=== PATIENT | female | born 2000 | race Caucasian/White ===

== ENCOUNTER 2023-08-13 13:38 | Observation (INO) | payer OTHER ==
[2023-08-13 14:25] LABS: BASOPHILS # (AUTO) 0.1 10^3/uL (0.0-0.1); BASOPHILS % (AUTO) 0.9 %; EOSINOPHILS % (AUTO) 0.3 %; HCT - HEMATOCRIT 22.3 % (37.0-47.0); LYMPHOCYTES # (AUTO) 1.5 10^3/uL (1.5-3.5); LYMPHOCYTES % (AUTO) 22.6 %; MEAN CORPUSCULAR HEMOGLOBIN 20.7 pg (27.0-31.0); MEAN CORPUSCULAR HGB CONC 28.7 g/dL (32.0-36.0); MEAN CORPUSCULAR VOLUME 72.2 fL (81.0-99.0); MEAN PLATELET VOLUME 10.4 fL (7.9-10.8); MONOCYTES # (AUTO) 0.6 10^3/uL (0.0-1.0); MONOCYTES % (AUTO) 8.6 %; NEUTROPHILS # (AUTO) 4.6 10^3/uL (1.5-6.6); NEUTROPHILS % (AUTO) 67.2 %; PLT - PLATELET COUNT 387 10^3/uL (130-450); RED BLOOD COUNT 3.09 10^6/uL (4.20-5.40); RED CELL DISTRIBUTION WIDTH 17.2 % (12.0-15.0); WHITE BLOOD COUNT 6.8 x10^3/uL (4.8-10.8)
[2023-08-13 14:28] LABS: HGB - HEMOGLOBIN 6.4 g/dL (12.0-16.0)
[2023-08-13 14:29] LABS: SLIDE REVIEW? Indicated
[2023-08-13 14:36] LABS: ALBUMIN 4.4 g/dL (3.2-5.5); ALBUMIN/GLOBULIN RATIO 1.8 (1.0-2.2); BILIRUBIN,TOTAL 0.2 mg/dL (0.2-1.0); CREATININE 0.7 mg/dL (0.6-1.3); POTASSIUM 3.7 mmol/L (3.5-4.5); TOTAL PROTEIN 6.9 g/dL (6.4-8.9)
[2023-08-13 14:50] LABS: PLATELET ESTIMATE, MANUAL NORMAL (130-450,000) (NORMAL); PLATELET MORPHOLOGY NORMAL APPEARANCE (NORMAL)
[2023-08-13 14:51] LABS: WBC MORPHOLOGY (MULTIPLE) NORMAL APPEARANCE (NORMAL)
[2023-08-13 14:57] LABS: HCG,QUALITATIVE BLOOD NEGATIVE
--- NOTE | 2023-08-13 15:29 | ED Physician Documentation ---
History of Present Illness - Stated complaint Stated Complaint: SENT BY PCP TRANSFUSION - Chief complaint Chief Complaint: General - Additonal information Additional information: 23-year-old female presents to the emergency department for evaluation of anemia and prolonged vaginal bleeding. She was seen at [facility] this morning for shortness of breath and fatigue. They found that she had a hemoglobin of 6.1 and she was advised ER evaluation. 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 Utilizing anywhere from 2- 6 pads a day. Because she was deployed they did not have the ability to further evaluate her vaginal bleeding and she just returned from deployment. She endorses fatigue and some shortness of air but no exertional chest pain. No syncope. No history of prolonged bleeding in the past. Denies melena. Does not take NSAID medication. Is not on any OCP. 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 : None HEENT: None Psych: None Musculoskeletal: None Derm: None - Past Surgical History Past Surgical History: No - Present Medications Home Medications: Ambulatory Orders Medication Instructions Recorded Confirmed No Known Home Medications 08/13/23 08/13/23 - Allergies Allergies/Adverse Reactions: Allergies Allergy/AdvReac Type Severity Reaction Status Date / Time No Known Drug Allergies Allergy Verified 08/13/23 14:00 - Social History Does the pt smoke?: No Smoking Status: Never smoker Does the pt drink ETOH?: No Does the pt have substance abuse?: No - Immunizations Immunizations are current?: Yes - POLST Patient has POLST: No PD ED PE NORMAL - General General: Alert and oriented X 3, No acute distress - Neck Neck: Supple, no meningeal sign - Cardiac Cardiac: RRR, No murmur - Respiratory Respiratory: No respiratory distress, Clear bilaterally - Abdomen Abdomen: Normal bowel sounds, Soft - Derm Derm: Normal color, Warm and dry - Extremities Extremities: No deformity - Neuro Neuro: Alert and oriented X 3, clipper machine 2-12 intact Eye Opening: Spontaneous Motor: Obeys Commands Verbal: Oriented GCS Score: 15 Results - Vitals Vitals: Vital Signs - 24 hr 08/13/23 14:00 Temperature 36.5 C Heart Rate 98 Respiratory 16 Rate Blood Pressure 138/76 H O2 Saturation 100 Oxygen O2 Source Room air - Labs Labs: Laboratory Tests 08/13/23 08/13/23 08/13/23 14:16 14:16 14:16 WBC 6.8 RBC 3.09 L Hgb 6.4 L* Hct 22.3 L MCV 72.2 L MCH 20.7 L MCHC 28.7 L RDW 17.2 H Plt Count 387 MPV 10.4 Neut # (Auto) 4.6 Lymph # (Auto) 1.5 Screven # (Auto) 0.6 Eos # (Auto) 0.0 Baso # (Auto) 0.1 Absolute Nucleated RBC 0.00 Nucleated RBC % 0.0 Manual Slide Review Indicated WBC Morphology NORMAL APPEARANCE Platelet Estimate NORMAL (130-450,000) Platelet Morphology NORMAL APPEARANCE RBC Morph Micro Appear 2+ MICROCYTOSIS Sodium 137 Potassium 3.7 Chloride 106 Carbon Dioxide 27 Anion Gap 4.0 L BUN 13 Creatinine 0.7 Estimated GFR (MDRD) 104 Glucose 99 Calcium 9.0 Total Bilirubin 0.2 AST 13 ALT 9 L Alkaline Phosphatase 74 Total Protein 6.9 Albumin 4.4 Globulin 2.5 Albumin/Globulin Ratio 1.8 Lipase 34 Serum HCG, Qual Blood Type O POSITIVE Blood Type Recheck Antibody Screen NEGATIVE Crossmatch IS Only See Detail 08/13/23 08/13/23 14:16 14:55 WBC RBC Hgb Hct MCV MCH MCHC RDW Plt Count MPV Neut # (Auto) Lymph # (Auto) Screven # (Auto) Eos # (Auto) Baso # (Auto) Absolute Nucleated RBC Nucleated RBC % Manual Slide Review WBC Morphology Platelet Estimate Platelet Morphology RBC Morph Micro Appear Sodium Potassium Chloride Carbon Dioxide Anion Gap BUN Creatinine Estimated GFR (MDRD) Glucose Calcium Total Bilirubin AST ALT Alkaline Phosphatase Total Protein Albumin Globulin Albumin/Globulin Ratio Lipase Serum HCG, Qual NEGATIVE Blood Type Blood Type Recheck O POSITIVE Antibody Screen Crossmatch IS Only - Rads (name of study) pelvic US Relevant Findings:: Final report received (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 Unclear etiology recommend further evaluation with sampling or MRI.) PD Medical Decision Making - ED course Complexity details: reviewed results, re-evaluated patient, d/w patient ED course: 23-year-old female referred to the emergency department for evaluation of anemia from the [facility]. Patient states she began having vaginal bleeding in March while on deployment. She is utilizing anywhere from 2-6 pads a day. She reports that she feels somewhat short of breath and fatigue but is not having any exertional chest pain or syncope. Presentation the ED she looks remarkably well with normal vital signs. Initial hemoglobin was 6.4. [facility] had a hemoglobin of 6.1. Received 20 minutes of [id number] time was spent with the patient, almost all in explanation and discussion is or fractures or sacral fracture the rest of her electrolytes were without acute worrisome abnormality. However given the anemia I have ordered 1 unit PRBC infusion. I also ordered a pelvic ultrasound for further evaluation of the source of bleeding. 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 Recommendation is for an MRI. Subsequently I spoke on the phone with plastics fabrication supervisor Dr. Campo on-call today who recommends that we continue with the MRI as well as the blood transfusion given the timing as well as the length required for these processes patient will be admitted under an observation status. Departure - Departure Disposition: ED Place in Observation Clinical Impression: Dysfunctional uterine bleeding, Anemia Forms: PCP List
--- NOTE | 2023-08-13 16:47 | Ultrasound Report ---
PROCEDURE: Pelvic w/Transvag+Doppler Comp INDICATIONS: vaginal bleeding since March TECHNIQUE: Real-time scanning was performed of the pelvic organs, with image documentation. Additional endovagi nal scanning was necessary due to incomplete visualization of the adnexal and endometrial structures by transabdominal scanning. Doppler interrogation was performed of the ovaries bilaterally. COMPARISON: None. FINDINGS: Uterus: Uterus is anteverted and normal in size at 6.2 x 3.8 x 5.1 cm. The myometrium is heterogene ous. There is an arcuate/septate endometrium. There is thickening and hypervascularity throughout the entire endometrium from the cervix to the fundus. Ovaries: The right ovary measures 3.0 x 2.0 x 2.4 cm, with a calculated ovarian volume of 7.3 cc. T he left ovary measures 2.6 x 1.8 x 1.6 cm, with a calculated ovarian volume of 3.8 cc. Appropriate b lood flow to the ovaries with Doppler interrogation. Less than 12 follicles can be seen in each ova ry. No adnexal masses are seen. No cystic lesions measuring greater than 3 cm. Other: No pathologic free abdominal or pelvic fluid. IMPRESSION: 1.There is an arcuate/septate morphology to the endometrium. There is thickening and hypervascularity throughout the entire endometrium from the cervix to the fundus. This is of unclear etiology. Recomm end further evaluation with endometrial sampling or MRI. 2.The ovaries are normal in appearance. Reviewed by: Ramírez Walter MD on 08/13/2023 4:45 PM PST Approved by: Ramírez Walter MD on 08/13/2023 4:45 PM PST Station ID: [id number]
[2023-08-13] MEDS ORDERED: SODIUM CHLORIDE FLUSH 0.9% 10 ML SYRINGE IVP PRN (17:21)
[2023-08-13] MEDS ORDERED: GADOTERATE MEGLUMINE 10 MMOL/20 ML VIAL ONE (18:06)
[2023-08-13] MEDS ORDERED: GADOTERATE MEGLUMINE 10 MMOL/20 ML VIAL IVP ONE (18:27)
[2023-08-13] MEDS ORDERED: SODIUM CHLORIDE 0.9% 1,000 ML IV SCH (19:00)
--- NOTE | 2023-08-13 20:40 | MRI Report ---
PROCEDURE: PELVIS W/WO INDICATIONS: AUB; vascular endometrial anomaly on US CONTRAST: CLARISCAN 14.6ML TECHNIQUE: Coronal ultra fast SE, sagittal breath-hold T2 FSE; axial T1 FSE with and without fat saturation thro ugh the pelvis. Optional long- and short-axis uterine nonbreath-hold T2 FSE through the uterus. Sag ittal or axial dynamic ultra fast GE during administration of contrast. Post-contrast axial or coron al ultra fast GE / 2-D spoiled GE with fat saturation from the iliac crests to the symphysis. Option al diffusion weighted imaging and ADC may be performed. COMPARISON: Same day vascular ultrasound FINDINGS: Image quality: Excellent. Uterus: The uterus is anteverted and anteflexed. The lateral margin of the uterus is smooth, without indentation. Within the endometrial cavity, there is a fibrous appearing, incomplete septation extend ing from the fundal segment (series 3, image 20), with associated soft tissue that extends through th e endocervix and into the vagina (series 3, image 17). This soft tissue does not demonstrate restrict ed diffusion, and doesn't demonstrate enhancement. The septation is incomplete, with a rim of normal endometrial tissue surrounding it within the mid uterine segment (series 2, image 13). Adnexa: Both ovaries are normal in size, without suspicious cystic or solid lesions. Urinary system: Bladder wall is normal in thickness. Distal ureters are non distended. Urethra lissy ears normal in morphology. Nodes and vessels: No pelvic or inguinal adenopathy by size criteria. Iliac vessels are normal in s ize. Bowel and peritoneum: No pathologic free pelvic fluid. Inferior colon and small bowel loops are nor mal in caliber. Soft tissues: No inguinal hernias. No findings of pelvic floor incompetence in the absence of provo cation. Bones: Marrow demonstrates normal overall signal. IMPRESSION: There is a soft tissue mass extending through the endocervix and into the vagina, originating from th e fundus of the uterus. There appears to be a incomplete septation of the breast tissue at this regio n. If this soft tissue does enhance, but does not restrict. Findings may indicate a prolapsed submucosal fibroid, less likely septate uterus. Recommend direct vi sualization and sampling of this soft tissue mass located within the vagina. Reviewed by: Rinku Napier on 08/13/2023 8:39 PM PST Approved by: Rinku Napier on 08/13/2023 8:39 PM [facility] Station ID: [id number]
[2023-08-13] MEDS ORDERED: diphenhydrAMINE 25 MG CAPSULE PO SCH (22:00)
[2023-08-13] MEDS ORDERED: ACETAMINOPHEN 325 MG TABLET PO SCH (22:00)
[2023-08-13 23:35] LABS: CHLAMYDIA TRACHOMATIS DNA NEGATIVE (NEGATIVE); NEISSERIA GONORRHOEAE DNA NEGATIVE (NEGATIVE); TRICHOMONAS VAGINALIS DNA NEGATIVE (NEGATIVE)
[2023-08-14] MEDS ORDERED: SODIUM CHLORIDE FLUSH 0.9% 10 ML SYRINGE IVP SCH (01:00)
[2023-08-14] MEDS ORDERED: SODIUM CHLORIDE 0.9% 1,000 ML IV SCH (01:00)
[2023-08-14 07:58] LABS: HCT - HEMATOCRIT 30.1 % (37.0-47.0); HGB - HEMOGLOBIN 9.2 g/dL (12.0-16.0)
--- NOTE | 2023-08-14 09:43 | ANESTHESIA ---
Pre-Anesthesia VS, & Labs - Diagnosis anemia, abnormal bleeding - Procedure hysteroscopy, D&C Vital Signs: Temp Pulse Resp BP Pulse Ox O2 Flow Rate 36.7 C 75 18 114/72 100 08/14/23 07:44 08/14/23 07:44 08/14/23 07:44 08/14/23 07:44 08/14/23 07:44 Height: 5 ft 3 in Weight (kg): 73.1 kg Body Mass Index: 28.5 BMI Classification: Overweight - NPO >8 hours - Is Patient ?: No - Lab Results Current Lab Results: Laboratory Tests 08/14/23 07:44: Hgb 9.2 L, Hct 30.1 L 08/13/23 14:55: Blood Type Recheck O POSITIVE 08/13/23 14:16: Serum HCG, Qual NEGATIVE 08/13/23 14:16: Blood Type O POSITIVE, Antibody Screen NEGATIVE, Crossmatch IS Only See Detail 08/13/23 14:16: Sodium 137, Potassium 3.7, Chloride 106, Carbon Dioxide 27, Anion Gap 4.0 L, BUN 13, Creatinine 0.7, Estimated GFR (MDRD) 104, Glucose 99, Calcium 9.0, Total Bilirubin 0.2, AST 13, ALT 9 L, Alkaline Phosphatase 74, Total Protein 6.9, Albumin 4.4, Globulin 2.5, Albumin/Globulin Ratio 1.8, Lipase 34 08/13/23 14:16: WBC 6.8, RBC 3.09 L, Hgb 6.4 L*, Hct 22.3 L, MCV 72.2 L, MCH 20.7 L, MCHC 28.7 L, RDW 17.2 H, Plt Count 387, MPV 10.4, Neut # (Auto) 4.6, Lymph # (Auto) 1.5, Baker # (Auto) 0.6, Eos # (Auto) 0.0, Baso # (Auto) 0.1, Absolute Nucleated RBC 0.00, Nucleated RBC % 0.0, Manual Slide Review Indicated, WBC Morphology NORMAL APPEARANCE, Platelet Estimate NORMAL (130-450,000), Platelet Morphology NORMAL APPEARANCE, RBC Morph Micro Appear 2+ MICROCYTOSIS Fish Bones: 08/14/23 07:44 08/13/23 14:16 Home Medications and Allergies Home Medications: Ambulatory Orders No Known Home Medications 08/13/23 Active Medications Acetaminophen (Acetaminophen 325 Mg Tablet) 650 mg PO .ONCE PIYUSH Last Admin: 08/13/23 22:44 Dose: 650 mg Diphenhydramine HCl (Diphenhydramine 25 Mg Capsule) 25 mg PO .ONCE PIYUSH Last Admin: 08/13/23 22:44 Dose: 25 mg Sodium Chloride (Normal Saline 0.9%) 1,000 mls @ 125 mls/hr IV .Q8H [facility] Last Admin: 08/14/23 02:00 Dose: 125 mls/hr Sodium Chloride (Sodium Chloride Flush 0.9% 10 Ml Syringe) 10 ml IVP PRN PRN PRN Reason: NEEDED PER PROVIDER ORDERS Sodium Chloride (Sodium Chloride Flush 0.9% 10 Ml Syringe) 10 ml IVP 0100,0900,1700 [facility] Last Admin: 08/13/23 19:45 Dose: 10 ml No Known Home Medications 08/13/23 Allergies/Adverse Reactions: Allergies Allergy/AdvReac Type Severity Reaction Status Date / Time No Known Drug Allergies Allergy Verified 08/13/23 14:00 Anes History & Medical History - Anesthetic History Anesthesia Complications: reports: No previous complications (pt has never had GA) Family history of Anesthesia Complications: Denies Family history of Malignant Hyperthermia: Denies - Medical History Cardiovascular: reports: None Pulmonary: reports: None Gastrointestinal: reports: None Urinary: reports: None Neuro: reports: None Musculoskeletal: reports: None Endocrine/Autoimmune: reports: None Blood Disorders: reports: None Skin: reports: None Smoking Status: Never smoker Other Past Medical History: Asthma as a child, none as an adult Exam General: Alert, Oriented x3, Cooperative Dental: WNL Mouth Openin Fingerbreadth Neck Mobility: Normal Mallampati classification: I Respiratory: Lungs clear Cardiovascular: Regular rate Plan Anesthesia Type: General Consent for Procedure(s) Verified and Reviewed: Yes Code Status: Attempt Resuscitation ASA classification: 1-Healthy patient Is this case an emergency?: No
[2023-08-14] MEDS ORDERED: ONDANSETRON 4 MG/2 ML VIAL IVP PRN (09:44)
[2023-08-14] MEDS ORDERED: NALOXONE 0.4 MG/ML VIAL IVP PRN (09:44)
[2023-08-14] MEDS ORDERED: HYDROmorphone 0.5 MG/0.5 ML SYRINGE IVP PRN (09:44)
[2023-08-14] MEDS ORDERED: ATROPINE ABBOJECT 1 MG/10 ML SYRINGE IVP PRN (09:44)
[2023-08-14] MEDS ORDERED: METOCLOPRAMIDE 10 MG/2 ML VIAL IVP PRN (09:44)
[2023-08-14] MEDS ORDERED: ePHEDrine 50 MG/ML VIAL IVP PRN (09:44)
[2023-08-14] MEDS ORDERED: MORPHINE 2 MG/ML CARPUJECT IVP PRN (09:44)
[2023-08-14] MEDS ORDERED: fentaNYL 100 MCG/2 ML VIAL IVP PRN (09:44)
[2023-08-14] MEDS ORDERED: LACTATED RINGERS 1,000 ML IV SCH (10:00)
[2023-08-14] MEDS ORDERED: SILVER NITRATE APPLICATOR TOP ONE (10:06)
[2023-08-14] MEDS ORDERED: MIDAZOLAM 2 MG/2 ML VIAL ONE (10:22)
[2023-08-14] MEDS ORDERED: fentaNYL 100 MCG/2 ML VIAL ONE (10:22)
[2023-08-14] MEDS ORDERED: PROPOFOL 200 MG/20 ML VIAL IVP ONE (10:24)
[2023-08-14] MEDS ORDERED: ACETAMINOPHEN 1,000 MG/100 ML 1,000 MG/100 ML BAG IV ONE (10:24)
[2023-08-14] MEDS ORDERED: ONDANSETRON 4 MG/2 ML VIAL ONE (10:24)
[2023-08-14] MEDS ORDERED: DEXAMETHASONE 4 MG/ML VIAL ONE (10:24)
[2023-08-14] MEDS ORDERED: KETOROLAC 30 MG/ML VIAL ONE (10:24)
[2023-08-14] MEDS ORDERED: LIDOCAINE-MPF 2% 5 ML VIAL ONE (10:24)
--- NOTE | 2023-08-14 10:32 | HISTORY & PHYSICAL EXAMINATION ---
HPI - Admitted From Admitted from: ED - History Obtained From History obtained from: Patient Exam limitations: No limitations - History of Present Illness Pain/Problem Location Description: pt presented with h/o bleeding since march - was deployed with the [employer] an HPI Comment/Other: pt presented to ED - referred in by [place] PCP for having HgB 6.1. Pt was deployed in [facility] x 6 months and bled the entire time. Sometimes red, sometimes brown and tacky, sometimes liquid and smelly. U/S showed abnormal uterine finding, MRI done - also showed abnormal finding. Discussed septation - on exam though is c/w long polyp vs prolapsing fibroid. received imaging, exam, labs, and 2 u PRBC overnight in preparation for the OR tomorrow no remarkable pain had abnormal bleeding a year ago - for 3w or a month, and then her periods returned regular until March of this year. PMH: denies PSH: denies POB: G0 PGYN: no h/o abnormal pap no h/o STDs no h/o problems with ovaries or uterus pt with regular monthly periods Meds: none All: NKDA Soc: neg x3, lives with [employer] housing, her is in [facility] just now. Fam: unremarkable, her mom had heavy bleeding for a few years, then surgery, and she is fine now. no cancer in her family. VSS NAD Conjunctiva pale, pale sclera +S1, S2, CTAB, no increased work of breathing Abd soft, NT, ND Pelvic: prolapsing large polyp, cervix surrounds polyp, no attachments of polyp to vagina, and polyp is firm. 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 : positive: None HEENT: positive: None Psych: positive: None Musculoskeletal: positive: None Derm: positive: None MRSA Hx?: No Other Past Medical History: Asthma as a child, none as an adult Social & Family Hx - Social History Does the pt smoke?: No Smoking Status: Never smoker Does the pt drink ETOH?: No Does the pt have substance abuse?: No - POLST Patient has POLST: No Meds/Allgy - Home Medications Home Medications: Ambulatory Orders Medication Instructions Recorded Confirmed No Known Home Medications 08/13/23 08/13/23 - Allergies Allergies/Adverse Reactions: Allergies Allergy/AdvReac Type Severity Reaction Status Date / Time No Known Drug Allergies Allergy Verified 08/13/23 14:00 Exam - Vital Signs Vital Signs: Vital Signs x48h Temp Pulse Resp BP Pulse Ox 08/14/23 07:44 98.1 F 75 18 114/72 100 Results - Lab Results Fish Bones: 08/14/23 07:44 08/13/23 14:16 Other Lab Results: Lab Results x24hrs 08/14/23 08/13/23 08/13/23 Range/Units 07:44 21:20 14:55 WBC (4.8-10.8) x10^3/uL RBC (4.20-5.40) 10^6/uL Hgb 9.2 L (12.0-16.0) g/dL Hct 30.1 L (37.0-47.0) % MCV (81.0-99.0) fL MCH (27.0-31.0) pg MCHC (32.0-36.0) g/dL RDW (12.0-15.0) % Plt Count (130-450) 10^3/uL MPV (7.9-10.8) fL Neut # (Auto) (1.5-6.6) 10^3/uL Lymph # (Auto) (1.5-3.5) 10^3/uL Harnett # (Auto) (0.0-1.0) 10^3/uL Eos # (Auto) (0.0-0.7) 10^3/uL Baso # (Auto) (0.0-0.1) 10^3/uL Absolute Nucleated RBC x10^3/uL Nucleated RBC % /100WBC Manual Slide Review WBC Morphology (NORMAL) Platelet Estimate (NORMAL) Platelet Morphology (NORMAL) RBC Morph Micro Appear (NORMAL) Sodium (135-145) mmol/L Potassium (3.5-4.5) mmol/L Chloride (101-111) mmol/L Carbon Dioxide (21-32) mmol/L Anion Gap (6-13) BUN (6-20) mg/dL Creatinine (0.6-1.3) mg/dL Estimated GFR (MDRD) (>89) Glucose (74-104) mg/dL Calcium (8.5-10.3) mg/dL Total Bilirubin (0.2-1.0) mg/dL AST (10-42) IU/L ALT (10-60) IU/L Alkaline Phosphatase (42-121) IU/L Total Protein (6.4-8.9) g/dL Albumin (3.2-5.5) g/dL Globulin (2.1-4.2) g/dL Albumin/Globulin Ratio (1.0-2.2) Lipase (11-82) U/L Serum HCG, Qual Chlam trachomat DNA PCR NEGATIVE (NEGATIVE) N.gonorrhoeae DNA (PCR) NEGATIVE (NEGATIVE) T. vaginalis (PCR) NEGATIVE (NEGATIVE) Blood Type Blood Type Recheck O POSITIVE Antibody Screen Crossmatch IS Only 08/13/23 08/13/23 08/13/23 Range/Units 14:16 14:16 14:16 WBC (4.8-10.8) x10^3/uL RBC (4.20-5.40) 10^6/uL Hgb (12.0-16.0) g/dL Hct (37.0-47.0) % MCV (81.0-99.0) fL MCH (27.0-31.0) pg MCHC (32.0-36.0) g/dL RDW (12.0-15.0) % Plt Count (130-450) 10^3/uL MPV (7.9-10.8) fL Neut # (Auto) (1.5-6.6) 10^3/uL Lymph # (Auto) (1.5-3.5) 10^3/uL Harnett # (Auto) (0.0-1.0) 10^3/uL Eos # (Auto) (0.0-0.7) 10^3/uL Baso # (Auto) (0.0-0.1) 10^3/uL Absolute Nucleated RBC x10^3/uL Nucleated RBC % /100WBC Manual Slide Review WBC Morphology (NORMAL) Platelet Estimate (NORMAL) Platelet Morphology (NORMAL) RBC Morph Micro Appear (NORMAL) Sodium 137 (135-145) mmol/L Potassium 3.7 (3.5-4.5) mmol/L Chloride 106 (101-111) mmol/L Carbon Dioxide 27 (21-32) mmol/L Anion Gap 4.0 L (6-13) BUN 13 (6-20) mg/dL Creatinine 0.7 (0.6-1.3) mg/dL Estimated GFR (MDRD) 104 (>89) Glucose 99 (74-104) mg/dL Calcium 9.0 (8.5-10.3) mg/dL Total Bilirubin 0.2 (0.2-1.0) mg/dL AST 13 (10-42) IU/L ALT 9 L (10-60) IU/L Alkaline Phosphatase 74 (42-121) IU/L Total Protein 6.9 (6.4-8.9) g/dL Albumin 4.4 (3.2-5.5) g/dL Globulin 2.5 (2.1-4.2) g/dL Albumin/Globulin Ratio 1.8 (1.0-2.2) Lipase 34 (11-82) U/L Serum HCG, Qual NEGATIVE Chlam trachomat DNA PCR (NEGATIVE) N.gonorrhoeae DNA (PCR) (NEGATIVE) T. vaginalis (PCR) (NEGATIVE) Blood Type O POSITIVE Blood Type Recheck Antibody Screen NEGATIVE Crossmatch IS Only See Detail 08/13/23 Range/Units 14:16 WBC 6.8 (4.8-10.8) x10^3/uL RBC 3.09 L (4.20-5.40) 10^6/uL Hgb 6.4 L* (12.0-16.0) g/dL Hct 22.3 L (37.0-47.0) % MCV 72.2 L (81.0-99.0) fL MCH 20.7 L (27.0-31.0) pg MCHC 28.7 L (32.0-36.0) g/dL RDW 17.2 H (12.0-15.0) % Plt Count 387 (130-450) 10^3/uL MPV 10.4 (7.9-10.8) fL Neut # (Auto) 4.6 (1.5-6.6) 10^3/uL Lymph # (Auto) 1.5 (1.5-3.5) 10^3/uL Harnett # (Auto) 0.6 (0.0-1.0) 10^3/uL Eos # (Auto) 0.0 (0.0-0.7) 10^3/uL Baso # (Auto) 0.1 (0.0-0.1) 10^3/uL Absolute Nucleated RBC 0.00 x10^3/uL Nucleated RBC % 0.0 /100WBC Manual Slide Review Indicated WBC Morphology NORMAL APPEARANCE (NORMAL) Platelet Estimate NORMAL (130-450,000) (NORMAL) Platelet Morphology NORMAL APPEARANCE (NORMAL) RBC Morph Micro Appear 2+ MICROCYTOSIS (NORMAL) Sodium (135-145) mmol/L Potassium (3.5-4.5) mmol/L Chloride (101-111) mmol/L Carbon Dioxide (21-32) mmol/L Anion Gap (6-13) BUN (6-20) mg/dL Creatinine (0.6-1.3) mg/dL Estimated GFR (MDRD) (>89) Glucose (74-104) mg/dL Calcium (8.5-10.3) mg/dL Total Bilirubin (0.2-1.0) mg/dL AST (10-42) IU/L ALT (10-60) IU/L Alkaline Phosphatase (42-121) IU/L Total Protein (6.4-8.9) g/dL Albumin (3.2-5.5) g/dL Globulin (2.1-4.2) g/dL Albumin/Globulin Ratio (1.0-2.2) Lipase (11-82) U/L Serum HCG, Qual Chlam trachomat DNA PCR (NEGATIVE) N.gonorrhoeae DNA (PCR) (NEGATIVE) T. vaginalis (PCR) (NEGATIVE) Blood Type Blood Type Recheck Antibody Screen Crossmatch IS Only Impression/Plan - Problem List Problem List: Anemia - acute on chronic - - tx 2u PRBC mass - s/p imaging - for removal in the morning, after 2u PRBC RBA discussed informed consent obtained anticipate D/C home post-op.
[2023-08-14] MEDS ORDERED: LACTATED RINGERS 1,000 ML IV ONE ×3 (11:33→11:57)
--- NOTE | 2023-08-14 11:35 | OPERATIVE REPORT ---
Operative Report - General Admit Date: 08/13/23 Procedure Date: 08/14/23 Planned Procedure: exam under anesthesia removal of polyp possible hysteroscopy Pre-Op Diagnosis: endometrial mass, prolapsing vaginally through cervix, severe anemia Procedure Performed: exam under anesthesia polypectomy Post Op Diagnosis: same as above - Procedure Note Primary Surgeon: hola Secondary Surgeon: dorota Anesthesia Provider: JACKIE Anesthesia Technique: General LMA Pathology: endometrial polyp Estimated Blood Loss (mL): 0 Urine Output (mL): 0 Indications: abnormal uterine bleeding for months causing subsequent severe anemia prolapsing mass into vagina - endometrium - polyp vs fibroid vs CA Findings: 5cm x 4cm prolapsing mass normal appering cervix small uterus, no masses or fullness in adnexa normal vagina small stock Complications: none apparent - Other Other Information/Narrative: OPERATIVE NOTE Pre-operative diagnosis: 1. prolapsing endometrial mass through cervix into vagina 2. abnormal uterine bleeding 3. severe anemia Procedure: EUA, polypectomy Post-operative diagnosis: Same as above Surgeon: Hola Meat Grader: Dorota Anesthesia: LMA Findings: EUA: mass in vagina, normal cervix small uterus, no adnexal masses Speculum: normal vagina, normal cervix Specimen: Polup sent to pathology Complications: None apparent EBL: minimal UOP: none, pt voided prior to case Dispo: Pt to PACU in stable condition Procedure in detail: After risks benefits and alternatives, as well as indication for procedure and anticipated post-operative recovery course, were discussed with the patient informed consent was obtained and patient was taken to the operating theater where general anesthesia with LMA was administered without complication. Pt placed in dorsal lithotomy position, SCDs in place and running, and bimanual exam revealed the aforementioned findings. Patient prepped and draped in normal sterile fashion. Time out performed. Singh speculum placed in posterior vagina, and anterior lip of cervix grasped with ring forceps. mass grasped with ring forcepts as well, and rotated clockwise until it was removed. Scant bleeding. Uterus firm, scant bleeding. All instruments removed, specimen sent to pathology. All counts correct. Pt awaked from anesthesia. Pt to PACU in stable condition.
[2023-08-14 12:01] VITALS: O2SAT 100
[2023-08-14 12:30] VITALS: BP 107/82
--- NOTE | 2023-08-14 16:28 | ANESTHESIA POST OP EVALUATION ---
Anesthesia Post Eval - Post Anesthesia Eval Vitals: Last Vital Signs Temp 36.3 C L 08/14/23 12:25 Pulse 73 08/14/23 12:25 Resp 18 08/14/23 12:25 BP 107/82 H 08/14/23 12:25 Pulse Ox 100 08/14/23 12:25 O2 Flow Rate CV Function Including HR & BP: Stable Pain Control: Satisfactory Nausea & Vomiting: Negative Mental Status: Baseline Respiratory Status: Airway Patent Hydration Status: Satisfactory Anesthesia Complications: None
--- NOTE | 2023-08-25 14:28 | Discharge Plan ---
Discharge Plan Problem Reviewed?: Yes Disposition: Home, Self Care Condition: Good Diet: Regular Activity Restrictions: No Restrictions Shower Restrictions: Yes Driving Restrictions: Yes (do not drive when on pain medications) Weight Bearing: Full Weight Instruction Topics: ED Bleed Irregular Vaginal Health Concerns: post op from polypectomy. follow up pathology. Plan of Treatment: routine post hysteroscopy precautions post-polypectomy precautions. Assessment: stable and ready for discharge once meeting all of post operative milestones. Additional Instructions or Follow Up instructions: f/u 2 weeks for post op visit in clinic. No Smoking: If you smoke, Please STOP! Call for help. Follow-up with: JONATAN LAN DO [Primary Care Provider] -
--- NOTE | 2023-09-08 23:36 | DISCHARGE SUMMARY ---
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 removed in OR. - HPI History of Present Illness: pt doing well today post procedure no significant bleeding pain controlled, juan diego PO ready to D/C home. all milestones met, all questions answered - CONSULTS | PROCEDURES Procedures: EUA polypectomy - HOSPITAL COURSE Hospital Course: pt admitted for observation, then proceeded to the OR for removal of apparent endometrial polyp for details regarding surgery please see separate operative report. - ALLERGIES Allergies/Adverse Reactions: Allergies Allergy/AdvReac Type Severity Reaction Status Date / Time No Known Drug Allergies Allergy Verified 08/13/23 14:00 - MEDICATIONS Home Medications: Ambulatory Orders Medication Instructions Recorded Confirmed No Known Home Medications 08/13/23 08/13/23 - PHYSICAL EXAM AT DISCHARGE General Appearance: positive: No acute distress Eyes Bilateral: positive: Normal inspection ENT: positive: ENT inspection nml Neck: positive: Nml inspection, Trachea midline Respiratory: positive: No respiratory distress Abdomen: positive: Non-tender, No organomegaly Skin: positive: Color nml, No rash, Warm, Dry Extremities: positive: Non-tender, Full ROM, Nml appearance Neurologic/Psychiatric: positive: Oriented x3 - LABS Result Diagrams: 08/14/23 07:44 08/13/23 14:16 - QUALITY (Female Hip Fx Only) Was patient sent home on osteoporosis medication?: No - FOLLOW UP Follow Up: [address] nicole at [facility] - TIME SPENT Time Spent in Discharge (Minutes): 10"
== END 2023-08-14 14:30 | disposition home or self-care (01) ==
LOC: ED 13:38 → FBP 17:21
PROVIDERS: ADMIT Obstetrics & Gynecology; ATTEND Obstetrics & Gynecology
PROC: 0UB97ZX Excision of Uterus, Via Natural or Artificial Opening, Diagnostic (ICD-10-PCS; principal; 2023-08-14 09:00)
DX: N93.8 Other specified abnormal uterine and vaginal bleeding (principal); N84.0 Polyp of corpus uteri; Q51.3 Bicornate uterus; D62 Acute posthemorrhagic anemia; Z11.3 Encounter for screening for infections with a predominantly sexual mode of transmission; Z32.02 Encounter for pregnancy test, result negative; Z91.82 Personal history of military deployment
CPT/HCPCS: 36415; 36430; 58999; 72197; 76830; 76856; 80053; 83690; 84703; 85014; 85018; 85025; 86850; 86900; 86901; 86920; 87491; 87591; 87661; 88305; 93975; 96360; 96361; 99284; 99285; A9270; A9575; G0378; J0131; J7120; P9016